=== PATIENT | male | born 1955 | race Caucasian/White ===

== ENCOUNTER → 2023-12-07 13:01 | Outpatient (REF) | payer OTHER, SELFPAY | LOC: HWRAD 13:01 | PROVIDERS: ATTENDING PHYSICIAN Otolaryngology; FAMILY PHYSICIAN Internal Medicine | DX: J34.2 Deviated nasal septum (principal); J32.0 Chronic maxillary sinusitis; J32.2 Chronic ethmoidal sinusitis | CPT/HCPCS: 70486 ==

== ENCOUNTER → 2024-10-20 08:21 | Outpatient (REF) | payer OTHER, SELFPAY | LOC: RAD 08:21 | PROVIDERS: ATTENDING PHYSICIAN Internal Medicine | DX: R09.89 Other specified symptoms and signs involving the circulatory and respiratory systems (principal) | CPT/HCPCS: 93880 ==

== ENCOUNTER → 2025-02-23 16:07 | Outpatient (REF) | payer OTHER, SELFPAY | LOC: HWRAD 16:07 | PROVIDERS: ATTENDING PHYSICIAN Nurse Practitioner Acute Care | DX: M25.571 Pain in right ankle and joints of right foot (principal); M79.671 Pain in right foot | CPT/HCPCS: 73610; 73620 ==

== ENCOUNTER → 2025-03-04 07:49 | Outpatient (REF) | payer OTHER, SELFPAY | LOC: RAD 07:49 | PROVIDERS: ATTENDING PHYSICIAN Internal Medicine | DX: R60.0 Localized edema (principal) | CPT/HCPCS: 93970 ==